=== PATIENT | male | born 1970 | race Caucasian/White ===

== ENCOUNTER 2023-10-08 09:43 | Emergency (ER) | payer BC, SELFPAY ==
[2023-10-08 09:56] VITALS: BP 163/93
--- NOTE | 2023-10-08 10:12 | ED.GENMED ---
History of Present Illness
General
Chief Complaint: Chest Pain
Time Seen by Provider: 10/08/23 10:02
History of Present Illness
History of Present Illness:
53-year-old male with history of hypertension and pulmonary embolism currently on Eliquis presents to the emergency department for evaluation of blurry vision, mild headache, left arm heaviness, and chest pain beginning this morning. He also
reports recent headaches over the past several days. He notes that approximately 2 months ago he was diagnosed with a right lower extremity DVT and a small pulmonary embolism and started on Eliquis. 2 weeks ago he was having left arm discomfort
and reportedly was diagnosed with a left upper extremity DVT but anticoagulation was not switched. Both of these hospital stays were [facility]. He currently reports improvement in symptoms from this morning but does still have some degree
of headache and chest pain.
Past History
Past History
ED Past Medical History: None
ED Past Surgical History: None
Social History
Living: with family
Employment: Employed
Review of Systems
Review of Systems
Allergies reviewed?: Yes
All Other Systems: ROS reviewed and negative except as documented in HPI and ROS
Phy Exam
Physical Exam
Physical Exam:
GEN: Well appearing, NAD, WDWN
HEENT: Oral mucosa moist, no scleral icterus, no nasal congestion
Cardiac: Regular rate and rhythm, no murmurs
Lung: No respiratory distress, no tachypnea, lungs clear to auscultation bilateral
MSK: No gross deformity or injuries
Skin: Good color, no pallor or jaundice, no rashes
Neuro: AO x3; CN II-XII grossly intact. BUE strength 5/5 in all rowe, sensation intact and symmetric. BLE strength 5/5 in all rowe, sensation intact and symmetric
Psych: Calm, cooperative
Scores
Heart Score for Chest Pain Patients
STEMI patient?: No
History: Slightly or Non-Suspicious
ECG: Normal
Age: >45 - <65 years
Risk Factors: 1 or 2 Risk Factors
Troponin: </= Normal Limit
Heart Score for Chest Pain Patients: 2
Heart Score Risk: 2.5% MACE over next 6 weeks
Course
Orders/Labs/Results
Orders:
Orders
10/08/23 09:49
EKG [Electrocardiogram (*1)] Urgent
Reason for Study: Chest Pain
EKG- Treatment ONCE
10/08/23 10:12
CR Chest - 2 Views Urgent
Comment:
Reason For Exam: CP/SOB
10/08/23 10:22
Complete Blood Count/With Diff Urgent
Comprehensive Metabolic Panel Urgent
NT-proBNP Urgent
Troponin I Urgent
10/08/23 10:29
Venous Doppler Upr Ext Left [US Periph Venous UPPER Ext LT] Urgent
Comment:
Reason For Exam: arm pain, recent L brachial vein DVT
10/08/23 12:26
CT Head W/o Iv Contrast Urgent
Comment:
Reason For Exam: blurry vision/headaches
Abnormal Lab Results
10/08/23
10:22
Absolute Monos (auto) 0.7 H 10^3/uL
(0.1-0.6)
Monocytes % 9.9 H %
(1.7-9.3)
Sodium 134 L mmol/L
(135-145)
Creatinine 0.6 L mg/dL
(0.7-1.3)
Glucose 132 H mg/dl
(70-99)
10/08/23 10:22
10/08/23 10:22
Vital Signs
Initial and Last Documented VS:
Initial Vital Signs
Temp Pulse Resp BP Pulse Ox
98.1 F 68 18 163/93 99
10/08/23 09:56 10/08/23 09:56 10/08/23 09:56 10/08/23 09:56 10/08/23 09:56
Last Documented Vital Signs
Temp Pulse Resp BP Pulse Ox
98.1 F 64 23 139/84 99
10/08/23 09:56 10/08/23 13:00 10/08/23 13:00 10/08/23 11:38 10/08/23 13:00
MDM/Problems Addressed
MDM/Problems Addressed:
Patient's workup is overall reassuring. The ultrasound shows complete resolution of the it was likely superficial phlebitis without by IV placement given that he has been anticoagulated throughout this time. Chest x-ray reassuring. Do not feel
that there is any indication for repeat CT angiogram of the chest given resolution of PE on last imaging from 2 weeks ago at [facility]. I do suspect there could be a psychosomatic component to the patient's symptoms if he eventually agrees may be
the underlying cause. Recommend continued outpatient primary care and hematology follow-up
Comment
Comment:
EKG independently interpreted by me shows a normal sinus rhythm at a rate of [address] changes concerning for ischemia, QTc of 446
*Critical Care Note
Total Time (30-74mins, 75-104mins- exclusive of procedures): Not Applicable
Update Note
Update Note:
1027: I was able to review the patient's chart at [facility], in early August he had an ultrasound of the right lower extremity showing extensive DVT from the proximal femoral vein running distally; clear external iliac and common femoral. CTA chest at
that time shows a small RLL PE w/o heart strain. Pt then had repeat CTA chest on 09/22 showing no e/o PE; repeat RLE US similar to initial. Also had a LUE duplex on 09/22 showing a brachial vein occlusive thrombus (uncertain if this represented
thombophlebitis due to prior IV placement vs new DVT). OAC was not switched at that time.
ED Attending Note
-
Portions of this chart may have been created with voice recognition software.� Occasional wrong word or��sound alike� substitutions may have occurred due to the inherent limitations of voice recognition software.
Discharge Plan
Departure
Patient Disposition: Home (Routine Discharge)
Date of Disposition: 10/08/23
Time of Disposition: 12:56
Patient with high blood pressure during this ER visit?: No
Discharge Problem:
Atypical chest pain
Instructions: Chest Pain That Is Not Caused by the Heart (DC)
Prescriptions:
No Action
'Antibiotic'
500 mg PO BID
Patient Comments:
pt. does not know the name of this antibiotic, but said it is for his toe.
Referrals:
Mark Chiang DO [Family Provider] -
Activity Restrictions/Additional Instructions:
Continue your blood thinners
Follow up with your gis programmer as planned
Interventions
Interventions:
*Risk Screen - Suicide Last Done: 10/08/23 10:11
*General Assessment Last Done: 10/08/23 09:56
*Neglect/Abuse Screening Last Done: 10/08/23 10:04
ED- Fall Risk Assessment Last Done: 10/08/23 13:11
*ED COVID-19 Vaccine History Last Done: 10/08/23 09:56
*Nursing Disposition Last Done: 10/08/23 13:11
ED- Cardiac Assessment Last Done: 10/08/23 10:12
Discharge Date and Time
Discharge Date/Time: 10/08/23 13:11
Print Language: TUNISIAN
--- NOTE | 2023-10-08 10:14 | EDRN ---
being treated for PE
[2023-10-08 10:31] LABS: % Basophils 0.4 % (0-2); % Eosinophils 3.8 % (0-6); % Immature Granulocytes 0.3 % (0-0.5); % Lymphocytes 27.1 % (20.5-51.1); % Monocytes 9.9 % (1.7-9.3); % Neutrophils 58.5 % (42.2-75.2); Absolute Eosinophils 0.3 10^3/uL (0-0.7); Absolute Lymphocytes 1.9 10^3/uL (1.2-3.4); Absolute Monocytes 0.7 10^3/uL (0.1-0.6); Hematocrit 43.7 % (39.0-52.0); Hemoglobin 15.1 g/dL (13.0-18.0); Mean Corp Hgb Conc. 34.6 g/dL (33.0-37.0); Mean Corpuscular Hgb 30.9 pg (27.0-31.0); Mean Corpuscular Volume 89.5 fL (80.0-94.0); Mean Platelet Volume 8.5 fL (7.4-10.4); Nucleated Red Blood Cells % 0 % (-); Platelet Count 257 10^3/uL (130-400); Red Blood Cell Count 4.88 10^6/uL (4.70-6.10); Red Cell Dist. Width 13.1 % (11.5-14.5); White Blood Cell Count 6.9 10^3/uL (4.8-10.8)
[2023-10-08 10:43] VITALS: BP 140/85
[2023-10-08 10:50] LABS: ALT (SGPT) 21 U/L (0-50); AST (SGOT) 27 U/L (17-59); Alkaline Phosphatase 73 U/L (38-126); Blood Urea Nitrogen 10 mg/dl (9-20); Calcium 9.7 mg/dl (8.4-10.2); Carbon Dioxide 28 mmol/L (22-30); Chloride 101 mmol/L (98-107); Glucose 132 mg/dl (70-99); Sodium 134 mmol/L (135-145); Total Bilirubin 0.5 mg/dl (0.2-1.3); Total Protein 7.2 g/dl (6.3-8.2); eGFR > 60.00
[2023-10-08 11:02] LABS: NT-proBNP 59.5 pg/ml; Troponin I < 0.012 ng/ml
[2023-10-08 11:38] VITALS: BP 139/84
== END 2023-10-08 13:11 | disposition home or self-care (01) ==
LOC: EMR 09:43
PROVIDERS: Physician Assistant; EMERGENCY PHYSICIAN Emergency Medicine; FAMILY PHYSICIAN Family Medicine
DX: R07.89 Other chest pain (principal); I10 Essential (primary) hypertension; Z79.01 Long term (current) use of anticoagulants; Z86.711 Personal history of pulmonary embolism; Z86.718 Personal history of other venous thrombosis and embolism
CPT/HCPCS: 99284; 70450; 71046; 80053; 83880; 84484; 85025; 93005; 93971

== ENCOUNTER → 2024-02-24 14:56 | Outpatient (REF) | payer BC, SELFPAY | LOC: HWRAD 14:56 | PROVIDERS: ATTENDING PHYSICIAN Otolaryngology; FAMILY PHYSICIAN Family Medicine | DX: J32.9 Chronic sinusitis, unspecified (principal); J31.0 Chronic rhinitis | CPT/HCPCS: 70486 ==